=== PATIENT | female | born 1985 | race Two or more races ===

== ENCOUNTER 2022-12-20 04:38 | Emergency (ER) | payer BC ==
[~2022-12-20] VITALS: Ht 157.5 cm; Wt 66.0 kg
[2022-12-20] MEDS ORDERED: AZIT500T66 PO (07:04)
[2022-12-20] MEDS ORDERED: BENZ100C19 PO (07:04)
[2022-12-20 07:15] VITALS: BP 117/58
== END 2022-12-20 07:42 | disposition home or self-care (01) ==
LOC: ER 04:38
DX: J03.90 Acute tonsillitis, unspecified (principal); Z20.822 Contact with and (suspected) exposure to COVID-19
CPT/HCPCS: 36415; 87426; 87804

== ENCOUNTER 2024-06-17 08:28 | Inpatient (IN) | payer BC, MEDICAID ==
[~2024-06-17] VITALS: Ht 157.5 cm; Wt 68.3 kg
[~2024-06-17 08:28] MED LIST: AZIT500T66 PO; BENZ100C19 PO
--- NOTE | 2024-06-17 09:00 | ED.PDOC ---
GI ASSESSMENT HPI Comments 38 y.o female with PMH of gallstones, presents to the ED for a chief complaint of suprapubic pain and nausea that started this morning. Patient describes pain as sharp, constant, non radiating and rating a 10/10 on the pain scale. Patient states pain presented spontaneously upon waking up, took 2 Tylenol tablets prior to coming to the ED but had no relief. No vomiting, diarrhea, fever, chills, or urinary symptoms reported. Chief Complaint: Abdominal Pain Time Seen by MD: 08:44 Reviewed Notes: Nurses Notes, Medications, Allergies Allergies: Coded Allergies: NO KNOWN ALLERGIES (Unverified , 12/20/22) Home Meds Active Scripts Benzonatate (Tessalon Perles) 100 Mg Cap, 200 MG PO TID, #30 CAP Prov:ELMER VO 12/20/22 Azithromycin (Azithromycin) 500 Mg Tab, 1 TAB PO DAILY, #5 TAB Prov:ELMER VO 12/20/22 Information Source: Patient Mode of Arrival: Ambulatory Timing: Hours Duration: Since onset Quality: Sharp Vomitus: None Stool: Normal Severity: Moderate Recent: None Recent Hx of: None Pain Location: Suprapubic Modifying Factors: Nothing Associated sign and symptoms: Nausea, Abdominal Pain Past Medical History PAST MEDICAL HISTORY: Gallstones Surgical History: (2) Surgical History (Other): gallstones and cosmetic tummy tuck CHILD CARE GIVER History: Denies all CHILD CARE GIVER Hx Family History Family History: Reviewed,noncontributory to illness Social History Smoker: Non-Smoker Alcohol: Denies ETOH Use Drugs: Denies Drug Use Lives In: Home Constitutional: denies: chills, diaphoresis, fatigue, fever, malaise, sweats, weakness, others EENTM: denies: blurred vision, double vision, ear bleeding, ear discharge, ear drainage, ear pain, ear ringing, eye pain, eye redness, hearing loss, mouth pain, mouth swelling, nasal discharge, nose bleeding, nose congestion, nose pain, photophobia, tearing, throat pain, throat swelling, voice changes, others Respiratory: denies: cough, hemoptysis, orthopnea, SOB at rest, shortness of breath, SOB with excertion, stridor, wheezing, others Gastrointestinal: reports: abdominal pain, nausea; denies: abdomen distended, blood streaked bowels, constipated, diarrhea, dysphagia, difficulty swallowing, hematemesis, melena, poor appetite, poor fluid intake, rectal bleeding, rectal pain, vomiting, others Genitourinary: denies: abnormal vagina bleeding, burning, dyspareunia, dysuria, flank pain, frequency, hematuria, incontinence, pain, , vagina discharge, urgency, others Neurological: denies: dizziness, fainting, headache, left sided numbness, left sided weakness, numbness, paresthesia, pre-existing deficit, right sided nu mbness, right sided weakness, seizure, speech problems, tingling, tremors, weakness, others Musculoskeletal: denies: back pain, gout, joint pain, joint swelling, muscle pain, muscle stiffness, neck pain, others Integumetry: denies: bruises, change in color, change in hair/nails, dryness, laceration, lesions, lumps, rash, wounds, others Allergic/Immunocompromised: denies: Difficulty Healing, Frequent Infections, Hives, Itching, others Hematologic/Lymphatic: denies: anemia, blood clots, easy bleeding, easy bruising, swollen glands, others Endocrine: denies: excessive hunger, excessive sweating, excessive thirst, excessive urination, flushing, intolerance to cold, intolerance to heat, unexplained weight gain, unexplained weight loss, others Psychiatric: denies: anxiety, bipolar disorder, depression, hopeless, panic disorder, schizophrenia, sleepless, suicidal, others All Other Systems: Reviewed and Negative Physical Exam General Appearance: Moderate Distress HEENT: Normal ENT Inspection, Pharynx Normal, TMs Normal Neck: Full Range of Motion, Non-Tender, Normal, Normal Inspection Respiratory: Chest Non-Tender, Lungs Clear, No Accessory Muscle Use, No Respiratory Distress, Normal Breath Sounds Cardiovascular: No Edema, No JVD, No Murmur, No Gallop, Normal Peripheral Pulses, Regular Rate/Rhythm Breast Exam: Deferred Gastrointestinal: No Organomegaly, No Pulsatile Mass, Normal Bowel Sounds, Soft Genitalia: Deferred Pelvic: Deferred Rectal: Deferred Extremities: No calf tenderness, Normal capillary refill, Normal inspection, Normal range of motion, Non-tender, No pedal edema Musculoskeletal : Apperance: Normal Neurologic: Alert, chain carrier II-XII nml as Tested, No Motor Deficits, Normal Affect, Normal Mood, No Sensory Deficits Cerebellar Function: Normal Reflexes: Normal Skin: Dry, Normal Color, Warm Peripheral Pulses: 3+ Radial (R), 3+ Radial (L) Lymphatic: No Adenopathy Was a procedure done? Was a procedure done?: No GI differential Dx Differential Diagnosis: Constipation, Diverticular disease, Esophagitis, Gastritis/PUD, Gastroenteritis, Inflammatory BD, Ovarian cyst/torsion X-Ray, Labs, Meds, VS Vital Signs Date Time Temp Pulse Resp B/P (MAP) Pulse Ox O2 Delivery O2 Flow Rate FiO2 06/17/24 11:29 98.1 94 18 115/43 (67) 99 98.1 06/17/24 11:29 91 18 97 Room Air* 0 21 06/17/24 08:50 97.7 89 16 123/64 (83) 99 Lab Test 06/17/24 09:07 06/17/24 08:48 Range/Units White Blood Count 11.7 H 4.4-10.8 10^3/uL Red Blood Count 4.61 4.0-5.20 10^6/uL Hemoglobin 14.2 12.2-16.2 g/dL Hematocrit 42.1 36.0-46.0 % Mean Corpuscular Volume 91.3 80.0-100.0 fL Mean Corpuscular Hemoglobin 30.9 28.0-32.0 pg Mean Corpuscular Hemoglobin Concent 33.8 32.0-36.0 g/dL Red Cell Distribution Width 12.6 11.8-14.3 % Platelet Count 199 140-450 10^3/uL Mean Platelet Volume 9.3 6.9-10.8 fL Neutrophils (%) (Auto) 83.9 H 37.0-80.0 % Lymphocytes (%) (Auto) 11.2 10.0-50.0 % Monocytes (%) (Auto) 4.4 0.0-12.0 % Eosinophils (%) (Auto) 0.4 0.0-7.0 % Basophils (%) (Auto) 0.1 0.0-2.0 % Neutrophils # (Auto) 9.8 H 1.6-8.6 10 ^3/uL Lymphocytes # (Auto) 1.3 0.4-5.4 10 ^3/uL Monocytes # (Auto) 0.5 0-1.3 10 ^3/uL Eosinophils # (Auto) 0 0-0.8 10 ^3/uL Basophils # (Auto) 0 0-0.2 10 ^3/uL Nucleated Red Blood Cells 0.1 % Sodium Level 139 136-145 mmol/L Potassium Level 4.1 3.5-5.1 mmol/L Chloride Level 107 98-107 mmol/L Carbon Dioxide Level 24 20-31 mmol/L Anion Gap 8 5-15 Blood Urea Nitrogen 13 9-23 mg/dL Creatinine 0.67 0.550-1.02 mg/dL Glomerular Filtration Rate Calc 114 >90 mL/min BUN/Creatinine Ratio 19.4 10.0-20.0 Serum Glucose 116 H 74-106 mg/dL Calcium Level 9.6 8.7-10.4 mg/dL Urine Color Yellow Yellow Urine Clarity Clear Clear Urine pH 5.0 5.0-9.0 Urine Specific [place] 1.029 1.001-1.035 Urine Protein Trace H Negative Urine Ketones Trace Negative Urine Blood Negative Negative /uL Urine Nitrite Negative Negative Urine Bilirubin Negative Negative Urine Urobilinogen Normal Negative mg/dL Urine Leukocyte Esterase Negative Negative /uL Urine RBC 10 0 - 4 /hpf Urine WBC 3 0 - 5 /hpf Urine Squamous Epithelial Cells Few <5 /hpf Urine Bacteria Few H None Seen /hpf Urine Mucus Few None Seen Urine Glucose Normal Normal mg/dL Current Medications Medications (Trade) Dose Ordered Sig/Melissa Route Start Time Stop Time Status Last Admin Ceftriaxone Sodium 50 ml @ 100 mls/hr ONCE ONCE IV 06/17/24 11:00 06/17/24 11:29 DC 06/17/24 11:26 Sodium Chloride 1,000 ml @ 1,000 mls/hr Q1H ONCE IV 06/17/24 11:00 06/17/24 11:59 DC 06/17/24 11:27 Patient alert. Complaining of abdominal pain. Suprapubic pain Vitals stable. Answering all questions. Possible urinary tract infection. Reviewed her history. Explained to the patient. Continue cardiac monitoring. WBC elevated. Urine has few bacteria. Establish intravenous access. Was given fluids. Was given Rocephin. CT scan of the abdomen reviewed ovarian cyst. CT CHEST, ABDOMEN AND PELVIS WITHOUT CONTRAST CLINICAL HISTORY: colitis TECHNIQUE: Multiple contiguous axial images of the abdomen and pelvis without intravenous contrast. The images were reformatted degenerate coronal and sagittal reconstructions. All CT scans at this medical facility are performed using dose modulation techniques as appropriate to a performed exam including the following:Automated exposure control was utilized; adjustment of the MA and/or KV according to patient size; and use of iterative reconstruction technique. Radiation Dose Information: CT Dose: CTDI volume is 6.36 mGy. Dose-length product is 349.39 mGy*cm FINDINGS: Evaluation of the abdomen and pelvis is limited without intravenous contrast. Gallbladder is surgically absent. The liver, pancreas, kidneys, adrenal glands, and spleen appear within normal limits. There is no gross evidence of abdominal lymphadenopathy. There is no free fluid or free air. The small and large bowel loops demonstrate normal caliber. There are scattered diverticula in the colon without evidence of acute diverticulitis. The abdominal aorta and IVC appear within normal limits. There is free fluid seen within the pelvis. The uterus appears within normal limits. There is a 4.6 x 3.2 cm cystic structure in the left adnexa presumably an ovarian cyst. Bladder grossly appears within normal limits for the degree of distention. There is no gross evidence of a pelvic mass. Lung bases are clear. There is no acute osseous abnormality. IMPRESSION: 1. There is nonspecific free fluid in the pelvis. 2. There is a 4.6 x 3.2 cm cystic structure in the left adnexa presumably an ovarian cyst. Further evaluation with dedicated pelvic ultrasound is recommended. 3. Cholecystectomy. Time of 1ST Reevaluation: 08:55 Reevaluation 1ST: Unchanged Patient Education/Counseling: Diagnosis, Treatment, Prognosis Family Education/Counseling: No Family Present Departure 1 Departure Time of Disposition: 09:09 Impression: Primary Impression: Intractable abdominal pain Additional Impression: Non-specific colitis Disposition: 09 ADMITTED INPATIENT Admit to: Med Surg Condition: Guarded Critical Care Note Critical Care Time?: No Stability Stability form required: No I personally scribed for BARBARA MUKHERJEE MD ([email or web address]) on 06/17/24 at 08:59. Electronically submitted by Orly Braun ([facility]). I personally scribed for BARBARA MUKHERJEE MD (MAG) on 06/17/24 at 13:04. Electronically submitted by Orly Braun ([facility]). BARBARA MUKHERJEE MD Jun 17, 2024 08:59
[2024-06-17 09:26] LABS: Urine Bacteria FEW /hpf (None Seen); Urine Blood Negative /uL (Negative); Urine Clarity Clear (Clear); Urine Color Yellow (Yellow); Urine Mucus FEW (None Seen); Urine Protein, UAD TRACE (Negative); Urine Specific Gravity 1.029 (1.001-1.035); Urine Urobilinogen Normal (Negative); Urine WBC 3 /hpf (0 - 5)
[2024-06-17 09:32] LABS: Basophils # (auto) 0 10 ^3/uL (0-0.2); Basophils % (auto) 0.1 % (0.0-2.0); Eosinophils # (auto) 0 10 ^3/uL (0-0.8); Eosinophils % (auto) 0.4 % (0.0-7.0); Hematocrit 42.1 % (36.0-46.0); Hemoglobin 14.2 g/dL (12.2-16.2); Lymphocytes # (auto) 1.3 10 ^3/uL (0.4-5.4); Lymphocytes % (auto) 11.2 % (10.0-50.0); Mean Corpuscular Hemoglobin 30.9 pg (28.0-32.0); Mean Corpuscular Hgb Conc. 33.8 g/dL (32.0-36.0); Mean Corpuscular Volume 91.3 fL (80.0-100.0); Monocytes # (auto) 0.5 10 ^3/uL (0-1.3); Monocytes % (auto) 4.4 % (0.0-12.0); Neutrophils # (auto) 9.8 10 ^3/uL (1.6-8.6); Neutrophils % (auto) 83.9 % (37.0-80.0); Nucleated Red Blood Cells % 0.1 %; Platelet Count (auto) 199 10^3/uL (140-450); Red Blood Cells 4.61 10^6/uL (4.0-5.20); Red Cell Distribution Width 12.6 % (11.8-14.3); White Blood Cell 11.7 10^3/uL (4.4-10.8)
[2024-06-17 09:46] LABS: Chloride 107 mmol/L (98-107); Potassium 4.1 mmol/L (3.5-5.1); Sodium 139 mmol/L (136-145)
[2024-06-17 09:47] LABS: Anion Gap 8 (5-15); Carbon Dioxide 24 mmol/L (20-31)
[2024-06-17 09:48] LABS: Calcium 9.6 mg/dL (8.7-10.4)
[2024-06-17 09:52] LABS: Glucose 116 mg/dL (74-106)
[2024-06-17 09:53] LABS: BUN/Creatinine Ratio 19.4 (10.0-20.0); Blood Urea Nitrogen 13 mg/dL (9-23)
[2024-06-17] MEDS: cefTRIAXone 1GM/50ML D5W 50 ML IV ONE (11:26)
[2024-06-17] MEDS: SODIUM CHLORIDE 0.9% 1,000 ML IV ONE ×2 (11:27→13:15)
[2024-06-17 11:29] VITALS: PULSE 91; RESP 18; O2SAT 97
--- NOTE | 2024-06-17 11:31 | DVH ---
CT CHEST, ABDOMEN AND PELVIS WITHOUT CONTRAST CLINICAL HISTORY: colitis TECHNIQUE: Multiple contiguous axial images of the abdomen and pelvis without intravenous contrast. The images were reformatted degenerate coronal and sagittal reconstructions. All CT scans at this medical facility are performed using dose modulation techniques as appropriate t o a performed exam including the following:Automated exposure control was utilized; adjustment of the MA and/or KV according to patient size; and use of iterative reconstruction technique. Radiation Dose Information: CT Dose: CTDI volume is 6.36 mGy. Dose-length product is 349.39 mGy*cm FINDINGS: Evaluation of the abdomen and pelvis is limited without intravenous contrast. Gallbladder is surgically absent. The liver, pancreas, kidneys, adrenal glands, and spleen appear within normal limits. There is no gross evidence of abdominal lymphadenopathy. There is no free fluid or free air. The small and large bowel loops demonstrate normal caliber. There are scattered diverticula in the c olon without evidence of acute diverticulitis. The abdominal aorta and IVC appear within normal limits. There is free fluid seen within the pelvis. The uterus appears within normal limits. There is a 4.6 x 3.2 cm cystic structure in the left adnexa presumably an ovarian cyst. Bladder grossly appears withi n normal limits for the degree of distention. There is no gross evidence of a pelvic mass. Lung bases are clear. There is no acute osseous abnormality. IMPRESSION: 1. There is nonspecific free fluid in the pelvis. 2. There is a 4.6 x 3.2 cm cystic structure in the left adnexa presumably an ovarian cyst. Further e valuation with dedicated pelvic ultrasound is recommended. 3. Cholecystectomy. HS:Y
--- NOTE | 2024-06-17 12:52 | DVH ---
INDICATION: Pain TECHNIQUE: Multiple real-time grayscale transabdominal sonographic images along with color and duplex Doppler of the uterus and ovaries were obtained. COMPARISON: None FINDINGS: The uterus measures 11.3 x 4.5 x 7.1 cm. The endometrial stripe measures 0.8 cm. Right ovary measures 2.5 x 1.5 x 1.0 cm with normal Doppler color flow Left ovary measures 4.9 x 3.5 x 3.6 cm with normal Doppler color flow. Left ovarian cyst measures 3. 8 cm. IMPRESSION: Left ovarian cyst or hemorrhagic cyst measures 3.8 cm.
[2024-06-17] MEDS ORDERED: MAALOX PLUS or MAALOX 30 ML PO PRN (13:15)
[2024-06-17] MEDS ORDERED: TEMAZEPAM 15 MG CAP PO PRN (13:15)
[2024-06-17] MEDS ORDERED: DOCUSATE SOD 100 MG CAP PO PRN (13:15)
[2024-06-17] MEDS ORDERED: LORazepam 0.5 MG TAB PO PRN (13:15)
--- NOTE | 2024-06-17 13:41 | DVHHP2 ---
History of Present Illness Reason for Visit: abdominal pain History of Present Illness 38 yo with history of ovarian cysts comes in with complaints of severe abdominal pain to the point it interferes with daily living and ability to function patient recommended for evaluation and admission Review of Systems Constitutional: No: Fever, Chills, Sweats, Weakness, Malaise, Other Eyes: No: Pain, Vision change, Conjunctivae inflammation, Eyelid inflammation, Other, Redness ENT: No: Ear pain, Ear discharge, Nose pain, Nose discharge, Nose congestion, Mouth pain, Mouth swelling, Throat pain, Throat swelling, Other Respiratory: No: Cough, Dry, Shortness of breath, SOB with excertion, Wheezing, Hemoptysis, Pleuritic Pain, Sputum, Wheezing, Other Gastrointestinal: Abdominal Pain; No: Nausea, Vomiting, Diarrhea, Constipation, Melena, Hematochezia, Other Genitourinary: No Dysuria, No Frequency, No Incontinence, No Hematuria, No Retention, No Other Musculoskeletal: No: other, neck pain, shoulder pain, arm pain, back pain, hand pain, leg pain, foot pain Skin: No: Rash, Lesions, Jaundice, Bruising, Other Neurological: No: Weakness, Numbness, Incoordination, Change in speech, Confusion, Seizures, Other Allergies: Coded Allergies: NO KNOWN ALLERGIES (Unverified , 12/20/22) Medications Current Medications Medications Dose Ordered Sig/Melissa Route Start Time Stop Time Status Last Admin Dose Admin Ceftriaxone Sodium 50 ml @ 100 mls/hr DAILY IV 06/18/24 10:00 Metronidazole 100 ml @ 100 mls/hr Q8HR IV 06/17/24 13:15 Lorazepam 0.5 mg Q6HP PRN PO 06/17/24 13:15 Al Hydrox/Mg Hydrox/Simethicone 30 ml Q6HP PRN PO 06/17/24 13:15 Docusate Sodium 100 mg BIDPRN PRN PO 06/17/24 13:15 Acetaminophen 650 mg Q6HP PRN PO 06/17/24 13:15 Temazepam 15 mg QHSP PRN PO 06/17/24 13:15 Acetaminophen/ Hydrocodone Bitart 1 tab Q4HP PRN PO 06/17/24 13:15 Ondansetron HCl 4 mg Q4HP PRN IV 06/17/24 13:15 Morphine Sulfate 2 mg Q4HPRN PRN IV 06/17/24 13:15 Exam Vital Signs Vital Signs Date Time Temp Pulse Resp B/P (MAP) Pulse Ox O2 Delivery O2 Flow Rate FiO2 06/17/24 11:29 98.1 94 18 115/43 (67) 99 98.1 06/17/24 11:29 Room Air* 0 21 General Appearance: Alert, Oriented X3 HEENT: Atraumatic, PERRLA Respiratory: Clear to auscultation, Normal air movement Cardiovascular: Regular rate, Normal S1, Normal S2 Abdominal: Normal bowel sounds, Soft, No tenderness Extremities: No clubbing, No cyanosis, No edema Skin: No rashes, No breakdown, No significant lesion Neuro: Normal gait, Normal speech, Strength at 5/5 X4 ext Psych/Mental Status: Mood NL Labs/Xrays Labs Test 06/17/24 09:07 06/17/24 08:48 Range/Units White Blood Count 11.7 H 4.4-10.8 10^3/uL Red Blood Count 4.61 4.0-5.20 10^6/uL Hemoglobin 14.2 12.2-16.2 g/dL Hematocrit 42.1 36.0-46.0 % Mean Corpuscular Volume 91.3 80.0-100.0 fL Mean Corpuscular Hemoglobin 30.9 28.0-32.0 pg Mean Corpuscular Hemoglobin Concent 33.8 32.0-36.0 g/dL Red Cell Distribution Width 12.6 11.8-14.3 % Platelet Count 199 140-450 10^3/uL Mean Platelet Volume 9.3 6.9-10.8 fL Neutrophils (%) (Auto) 83.9 H 37.0-80.0 % Lymphocytes (%) (Auto) 11.2 10.0-50.0 % Monocytes (%) (Auto) 4.4 0.0-12.0 % Eosinophils (%) (Auto) 0.4 0.0-7.0 % Basophils (%) (Auto) 0.1 0.0-2.0 % Neutrophils # (Auto) 9.8 H 1.6-8.6 10 ^3/uL Lymphocytes # (Auto) 1.3 0.4-5.4 10 ^3/uL Monocytes # (Auto) 0.5 0-1.3 10 ^3/uL Eosinophils # (Auto) 0 0-0.8 10 ^3/uL Basophils # (Auto) 0 0-0.2 10 ^3/uL Nucleated Red Blood Cells 0.1 % Sodium Level 139 136-145 mmol/L Potassium Level 4.1 3.5-5.1 mmol/L Chloride Level 107 98-107 mmol/L Carbon Dioxide Level 24 20-31 mmol/L Anion Gap 8 5-15 Blood Urea Nitrogen 13 9-23 mg/dL Creatinine 0.67 0.550-1.02 mg/dL Glomerular Filtration Rate Calc 114 >90 mL/min BUN/Creatinine Ratio 19.4 10.0-20.0 Serum Glucose 116 H 74-106 mg/dL Calcium Level 9.6 8.7-10.4 mg/dL Urine Color Yellow Yellow Urine Clarity Clear Clear Urine pH 5.0 5.0-9.0 Urine Specific [place] 1.029 1.001-1.035 Urine Protein Trace H Negative Urine Ketones Trace Negative Urine Blood Negative Negative /uL Urine Nitrite Negative Negative Urine Bilirubin Negative Negative Urine Urobilinogen Normal Negative mg/dL Urine Leukocyte Esterase Negative Negative /uL Urine RBC 10 0 - 4 /hpf Urine WBC 3 0 - 5 /hpf Urine Squamous Epithelial Cells Few <5 /hpf Urine Bacteria Few H None Seen /hpf Urine Mucus Few None Seen Urine Glucose Normal Normal mg/dL Assessment/Plan Assessment/Plan Admit Med/Surge UTI acute signs of infection iv abx iv hydration Suspected Ovarian Hemorrhagic cyst doe/call taker evaluation prn pain management patient with severe pain iv hydration Plan discussed with: Patient My Orders Orders - MARIUM OAKLEY MD Procedure Category Date Status Time Ceftriaxone 1gm/50ml PHA 06/18/24 In Process D5w (Rocephin) 10:00 Metronidazole PHA 06/17/24 In Process 500mg/100ml (Flagyl 13:15 Sodium Chloride 0.9% PHA 06/17/24 In Process 13:15 * Tier And Detonator Consultation CONS 06/17/24 Transmitted 13:02 Admit ADMIT 06/17/24 Transmitted 13:02 Code Status CODE 06/17/24 Transmitted 13:02 Vital Signs SABA 06/17/24 In Process 13:02 Review Orders With SABA 06/17/24 In Process . 13:02 Regular Diet DIET 06/17/24 Transmitted Lunch Lorazepam Tablet PHA 06/17/24 In Process (Ativan Tablet) 13:15 Alum & Mag PHA 06/17/24 In Process Hydrox-Simethicone 13:15 Docusate Sodium PHA 06/17/24 In Process Capsule (Colace 13:15 Acetaminophen Tablet PHA 06/17/24 In Process (Tylenol Tablet) 13:15 Temazepam (Restoril) PHA 06/17/24 In Process 13:15 Notify Md Of Changes SABA 06/17/24 In Process From Base 13:02 Advance Directive SABA 06/17/24 In Process 13:02 Basic Metabolic Panel LAB 06/18/24 Verified 04:00 Complete Blood Count LAB 06/18/24 Verified 04:00 Patient Condition ORDERS 06/17/24 Transmitted 13:02 Allergies SABA 06/17/24 In Process 13:02 Hydrocodone-Acet PHA 06/17/24 In Process 5/325mg Tab ([place] 13:15 Ondansetron Hcl PHA 06/17/24 In Process (Zofran) 13:15 Morphine Sulfate PHA 06/17/24 In Process Injection 13:15 Notify Md Of Changes SABA 06/17/24 In Process From Base 13:02 Oxygen By Nasal RT 06/17/24 Transmitted Cannula 13:02 Problem List: (1) Cyst of ovary, left (2) Urinary tract infection (3) Intractable abdominal pain Date of Service: Jun 17, 2024 Billing Provider: MARIUM OAKLEY MD Common Visit Codes: [id number] INP/OBS CARE (HIGH) MARIUM OAKLEY MD Jun 17, 2024 13:41
[2024-06-17] MEDS: metroNIDAZOLE 500MG/100ML 100 ML IV SCH (13:55)
[2024-06-17] MEDS: HYDROcodone-ACET 5/325MG TAB PO PRN (21:23)
[2024-06-18] VITALS (8 sets, daily range): BP systolic 104–118; BP diastolic 42–59; PULSE 62–89; RESP 16–18; TEMP 98–98.6; O2SAT 74–100
[2024-06-18] MEDS: ONDANSETRON HCL 4 MG/2 ML VIAL IV PRN (01:47)
[2024-06-18] MEDS: MORPHINE SULFATE INJ 2 MG/ml SYRG IV PRN (01:47)
[2024-06-18] MEDS: cefTRIAXone 1GM/50ML D5W 50 ML IV SCH (08:55)
[2024-06-18 09:24] LABS: Basophils # (auto) 0 10 ^3/uL (0-0.2); Basophils % (auto) 0.2 % (0.0-2.0); Eosinophils # (auto) 0.1 10 ^3/uL (0-0.8); Eosinophils % (auto) 1.1 % (0.0-7.0); Hematocrit 37.4 % (36.0-46.0); Hemoglobin 13.1 g/dL (12.2-16.2); Lymphocytes # (auto) 1.7 10 ^3/uL (0.4-5.4); Lymphocytes % (auto) 22.5 % (10.0-50.0); Mean Corpuscular Hemoglobin 31.7 pg (28.0-32.0); Mean Corpuscular Hgb Conc. 35.1 g/dL (32.0-36.0); Mean Corpuscular Volume 90.3 fL (80.0-100.0); Monocytes # (auto) 0.5 10 ^3/uL (0-1.3); Monocytes % (auto) 6.5 % (0.0-12.0); Neutrophils # (auto) 5.4 10 ^3/uL (1.6-8.6); Neutrophils % (auto) 69.7 % (37.0-80.0); Platelet Count (auto) 169 10^3/uL (140-450); Red Blood Cells 4.14 10^6/uL (4.0-5.20); Red Cell Distribution Width 12.8 % (11.8-14.3); White Blood Cell 7.7 10^3/uL (4.4-10.8)
[2024-06-18 09:40] LABS: Anion Gap 10 (5-15); Carbon Dioxide 23 mmol/L (20-31); Chloride 108 mmol/L (98-107); Potassium 3.9 mmol/L (3.5-5.1); Sodium 141 mmol/L (136-145)
[2024-06-18 09:41] LABS: Calcium 9.4 mg/dL (8.7-10.4)
[2024-06-18 09:46] LABS: BUN/Creatinine Ratio 14.8 (10.0-20.0); Blood Urea Nitrogen 9 mg/dL (9-23); Glucose 110 mg/dL (74-106)
[2024-06-18 11:14] LABS: Albumin 4.2 g/dL (3.2-4.8); Bilirubin, Direct 0.2 mg/dL (<0.3); Bilirubin, Total 0.6 mg/dL (0.2-1.0); Total Protein 6.7 g/dL (5.7-8.2)
--- NOTE | 2024-06-18 17:08 | DVHINCON2 ---
Date of service: Jun 18, 2024 Reason for Consultation Abdominal Pain History of Present Illness HPI 38y SAB1 LMP 05/28/24. History of C/Section x 2 and s/p BTL Admitted with acute abdominal pain. Denies N/V diarrhea or fever. Denies abnormal vaginal discharge, and has no risk factors for PID/STI, mo nogamous x 5 years () ASSEMBLY DEPARTMENT SUPERVISOR history: Last PAP 2023 "normal" per patient. Denies history of GC/CT or STI Menses are very irregular, skips 2-3 months (anovulation) and then has menstrual cycles that are heavy with 3-5 days of flow Denies pain w/ intercourse. Currently pain is moderate, better with rest and analgesics CT scan demonstrates a left ovarian cyst approx 4.6 cm and free fluid in the pelvis Pelvic US demonstrates a left ovarian cyst 3.8cm, normal endometrial stripe, normal right ovary. Uterus 11.3 x 4.5 x 7.1 cm without mass or fibroids. Past Medical History Cardiac: No pertinent Hx Pulmonary: No pertinent Hx Central Nervous System: No pertinent Hx GI: No pertinent Hx Hemotology/Oncology: No pertinent Hx Hepatobiliary: No pertinent Hx Psychiatric: No pertinent Hx Musculoskeletal: No pertinent Hx Rheumotologic: No pertinent Hx Infectious Disease: No peritnent Hx ENT: No pertinent Hx Renal/: No pertinent Hx Endocrine: No pertinent Hx Dermatology: No pertinent Hx Past Surgical History: Cholecystectomy, , Other (Abdominoplasty) Family History: No pertinent Hx Patient Family History: Patient reports no known family medical history. Smoker: No Hx (Negative) Alocohol: Rare Drugs: None Lives with: With family Review of Systems Constitutional: No symptom reported Ears, Nose, & Throat: No symptom reported Eyes: No symptom reported Pulmonary/Respiratory: No symptom reported Cardiovascular: No symptom reported Gastrointestinal: Abdominal Pain Genitourinary: No symptom reported Musculoskeletal: No symptom reported Skin: No symptom reported Psychiatric: No symptom reported Endocrine: No symptom reported Hemotologic/Lymphatic: No symptom reported H&P Exam Vital Signs Vital Signs Date Time Temp Pulse Resp B/P (MAP) Pulse Ox O2 Delivery O2 Flow Rate FiO2 06/18/24 12:36 98.0 86 17 104/55 (71) 95 98.0 06/18/24 08:00 Room Air* 0 21 General Appeara: Well developed, Well nourished, Normal Appearance Head Exam: Normal inspection Eye Exam: bilateral eye PERRL Mouth: Normal Inspection Pulmonary/Respiratory: Normal inspection, Normal breath sounds Cardiovascular/Chest: Normal inspection Abdominal Exam: Soft, No masses, Other (Mild tenderness in RLQ and LLQ, no rebound, no peritoneal signs) Pelvic Exam: Not done Neuro/Mental St: Alert, Oriented Appearance: Appropriate appearance Labs/Xrays PATIENT: ESTELLA VILLATORO TACCT: [id number] UNIT: [id number] : 1985 LOC: ER ROOM / BED: / AGE / SEX: 38 / F ADM STATUS: REG ER SERVICE 1143 ORDERING PHYSICIAN: BARBARA MUKHERJEE MD PROCEDURE(s): PELUS - PELVIC REASON: cyst ORDER NUMBER(s): [id number], ACCESSION NUMBER(s): [id number] INDICATION: Pain TECHNIQUE: Multiple real-time grayscale transabdominal sonographic images along with color and duplex Doppler of the uterus and ovaries were obtained. COMPARISON: None FINDINGS: The uterus measures 11.3 x 4.5 x 7.1 cm. The endometrial stripe measures 0.8 cm. Right ovary measures 2.5 x 1.5 x 1.0 cm with normal Doppler color flow Left ovary measures 4.9 x 3.5 x 3.6 cm with normal Doppler color flow. Left ovarian cyst measures 3.8 cm. IMPRESSION: Left ovarian cyst or hemorrhagic cyst measures 3.8 cm. ATED BY: JONO ABAD MD DICTATED DATE/TIME: 06/17/24 1249 Labs Test 06/18/24 14:20 06/18/24 11:30 06/18/24 08:48 06/17/24 08:48 Range/Units Urine Test Negative Negative Lactic Acid Level 1.2 0.4-2.0 mmol/L White Blood Count 7.7 # 4.4-10.8 10^3/uL Red Blood Count 4.14 4.0-5.20 10^6/uL Hemoglobin 13.1 12.2-16.2 g/dL Hematocrit 37.4 # 36.0-46.0 % Mean Corpuscular Volume 90.3 80.0-100.0 fL Mean Corpuscular Hemoglobin 31.7 28.0-32.0 pg Mean Corpuscular Hemoglobin Concent 35.1 32.0-36.0 g/dL Red Cell Distribution Width 12.8 11.8-14.3 % Platelet Count 169 140-450 10^3/uL Mean Platelet Volume 9.0 6.9-10.8 fL Neutrophils (%) (Auto) 69.7 37.0-80.0 % Lymphocytes (%) (Auto) 22.5 10.0-50.0 % Monocytes (%) (Auto) 6.5 0.0-12.0 % Eosinophils (%) (Auto) 1.1 0.0-7.0 % Basophils (%) (Auto) 0.2 0.0-2.0 % Neutrophils # (Auto) 5.4 1.6-8.6 10 ^3/uL Lymphocytes # (Auto) 1.7 0.4-5.4 10 ^3/uL Monocytes # (Auto) 0.5 0-1.3 10 ^3/uL Eosinophils # (Auto) 0.1 0-0.8 10 ^3/uL Basophils # (Auto) 0 0-0.2 10 ^3/uL Nucleated Red Blood Cells 0.0 % Sodium Level 141 136-145 mmol/L Potassium Level 3.9 3.5-5.1 mmol/L Chloride Level 108 H 98-107 mmol/L Carbon Dioxide Level 23 20-31 mmol/L Anion Gap 10 5-15 Blood Urea Nitrogen 9 9-23 mg/dL Creatinine 0.61 0.550-1.02 mg/dL Glomerular Filtration Rate Calc 117 >90 mL/min BUN/Creatinine Ratio 14.8 10.0-20.0 Serum Glucose 110 H 74-106 mg/dL Calcium Level 9.4 8.7-10.4 mg/dL Total Bilirubin 0.6 0.2-1.0 mg/dL Direct Bilirubin 0.2 <0.3 mg/dL Aspartate Amino Transferase (AST) 30 13-40 U/L Alanine Aminotransferase (ALT) 31 7-40 U/L Alkaline Phosphatase 62 46-116 U/L Total Protein 6.7 5.7-8.2 g/dL Albumin 4.2 3.2-4.8 g/dL Urine Color Yellow Yellow Urine Clarity Clear Clear Urine pH 5.0 5.0-9.0 Urine Specific [place] 1.029 1.001-1.035 Urine Protein Trace H Negative Urine Ketones Trace Negative Urine Blood Negative Negative /uL Urine Nitrite Negative Negative Urine Bilirubin Negative Negative Urine Urobilinogen Normal Negative mg/dL Urine Leukocyte Esterase Negative Negative /uL Urine RBC 10 0 - 4 /hpf Urine WBC 3 0 - 5 /hpf Urine Squamous Epithelial Cells Few <5 /hpf Urine Bacteria Few H None Seen /hpf Urine Mucus Few None Seen Urine Glucose Normal Normal mg/dL Assessment/Plan Admitting Diagnosis: 1. Acute abdominal pain 2. Irreg menses, anovulation 3. Left ovarian 3.8 cm cyst, likely hemorrhagic cyst Plan NO acute clinical documentation clerk intervention indicated at this time No indication for surgery (NO cyst rupture or torsion, hemodynamically stable) Follicular/ Functional cysts should be managed conservatively and with symptomatic treatment, analgesics Would consider inhibition of ovulation with use of OCPs or combined contraceptives. Recommend Follow up with ASSEMBLY DEPARTMENT SUPERVISOR in outpatient clinic. Recommend repeat Pelvic US in 6-8 wk for resolution of ovarian cyst. ASSEMBLY DEPARTMENT SUPERVISOR will sign off. Plan discussed with: Patient Date of Service: Jun 18, 2024 Billing Provider: JUANITO DIEGO DO Common Visit Codes: CONSULT ONLY Consultation Codes: [id number] CONSULT <60MIN JUANITO DIEGO DO Jun 18, 2024 17:08
--- NOTE | 2024-06-18 17:28 | DVHPNRES ---
Progress Note Date Seen: Jun 18, 2024 Resident Creating Document: LUKAS HUSSEIN RESIDENT Has the PT tested + for MRSA If YES, has PT been informed?: No Medical Necessity Reason Pt with a Central, PICC or Fol: Yes The following are medically ne: Central Line Subjective Review of Systems Patient has intermittent abdominal pain., with pain medication we will with morphine. Denies nausea vomiting or any other GI or symptoms. Patient reports: No new complaints, Feels better Changes from previous H/P or p: No Changes Review of Systems: HEENT:Normal, CVS:Normal, RESPIRATORY:Normal, GI:Abnormal (Abdominal pain), :Normal, MSK:Normal, NEURO:Normal Objective vital signs Vital Sign Date Time Temp Pulse Resp B/P (MAP) Pulse Ox O2 Delivery O2 Flow Rate FiO2 06/18/24 12:36 98.0 86 17 104/55 (71) 95 98.0 06/18/24 08:00 Room Air* 0 21 Total Intake and Output 06/17/24 06/17/24 06/18/24 15:00 23:00 07:00 Intake Total 200 ml Output Total 0 ml Balance 200 ml medications Current Medications Medications Dose Ordered Sig/Melissa Route Start Time Stop Time Status Last Admin Dose Admin Ceftriaxone Sodium 50 ml @ 100 mls/hr DAILY IV 06/18/24 10:00 06/18/24 08:55 100 MLS/HR Metronidazole 100 ml @ 100 mls/hr Q8HR IV 06/17/24 13:15 06/18/24 16:42 100 MLS/HR Lorazepam 0.5 mg Q6HP PRN PO 06/17/24 13:15 Al Hydrox/Mg Hydrox/Simethicone 30 ml Q6HP PRN PO 06/17/24 13:15 Docusate Sodium 100 mg BIDPRN PRN PO 06/17/24 13:15 Acetaminophen 650 mg Q6HP PRN PO 06/17/24 13:15 Temazepam 15 mg QHSP PRN PO 06/17/24 13:15 Ondansetron HCl 4 mg Q4HP PRN IV 06/17/24 13:15 06/18/24 01:47 4 MG Examination: GENERAL:Normal, HEENT:Normal, NECK:Normal, LUNGS:Normal, CVS:Normal, ABDOMEN:Abnormal (Suprapubic tenderness, otherwise BS positive, CVA angle tenderness negative,), MSK:Normal, SKIN:Normal, NEURO:Normal, :Normal laboratory and microbiology Laboratory Tests 06/18/24 08:48 Test 06/18/24 08:48 Range/Units Serum Glucose 110 H 74-106 mg/dL Labs and/or images reviewed: Labs reviewed by me, Image(s) reviewed by me Problem List/Assessment/Plan Problem List/Assessment/Plan Hospital Course: Aman Louis a female with a history of three healthy pregnancies and two sections, experiencing menometrorrhagia, was initially evaluated by OBGYN and found to have a simple cyst. With a known history of ovarian cysts, she presented with severe abdominal pain affecting daily living and functioning. During evaluation, a hemorrhagic ovarian cyst was found. She is hemodynamically stable, in active pain, on IV fluids and antibiotics, and awaiting further OBGYN evaluation for management. Patient lives with family and kids. Denied any history of lifetime smoking, alcohol or any other recreational drugs. # Hemorrhagic ovarian cyst: noted in abdominal imaging, Nonspecific free fluid noted on IV ceftriaxone and metronidazole for broad coverage. Blood culture, urine culture to follow as well. initial leukocytosis improved. Waiting for OBGYN input. # known left ovarian cyst, 4.6 x 3.2 in the left adnexa: Previous ultrasound few months back noted it 1st. No previous pain or related hospitalization. # Possible UTI: Urine tardy, covering with ceftriaxone already, follow urine culture. Mild suprapubic tenderness, patient complains of nonspecific urinary symptoms. UA unremarkable. # Insomnia, on Restoril /temazepam 15 mg as needed. # history of cholecystectomy # overweight with BMI of 27.[address] Bautista. Code status: Full code. Complex patient care discussion needed total 39 minutes. Plan discussed with: Patient, Other My Orders My Orders Orders - LUKAS HUSSEIN Procedure Category Date Status Time Blood Culture ALYCIA 06/18/24 In Process 09:55 Urine Bacterial ALYCIA 06/18/24 In Process Culture 09:55 Complete Blood Count LAB 06/19/24 Verified 04:00 LUKAS HUSSEIN Jun 18, 2024 17:28
[2024-06-18] MEDS ORDERED: MORPHINE SULFATE INJ 2 MG/ml SYRG IV PRN (17:30)
[2024-06-18] MEDS ORDERED: HYDROcodone-ACET 5/325MG TAB PO PRN (17:30)
[2024-06-19 01:00] VITALS: BP 98/39; PULSE 89; RESP 18; TEMP 97.8; O2SAT 96
[2024-06-19 05:00] VITALS: BP 101/45; PULSE 96; RESP 18; TEMP 97.6; O2SAT 94
[2024-06-19 06:08] LABS: Basophils # (auto) 0 10 ^3/uL (0-0.2); Basophils % (auto) 0.3 % (0.0-2.0); Eosinophils # (auto) 0.1 10 ^3/uL (0-0.8); Eosinophils % (auto) 0.9 % (0.0-7.0); Hematocrit 35.1 % (36.0-46.0); Hemoglobin 12.8 g/dL (12.2-16.2); Lymphocytes # (auto) 0.8 10 ^3/uL (0.4-5.4); Lymphocytes % (auto) 11.1 % (10.0-50.0); Mean Corpuscular Hemoglobin 32.8 pg (28.0-32.0); Mean Corpuscular Hgb Conc. 36.4 g/dL (32.0-36.0); Mean Corpuscular Volume 90.1 fL (80.0-100.0); Monocytes # (auto) 0.4 10 ^3/uL (0-1.3); Monocytes % (auto) 6.2 % (0.0-12.0); Neutrophils # (auto) 5.9 10 ^3/uL (1.6-8.6); Neutrophils % (auto) 81.5 % (37.0-80.0); Platelet Count (auto) 150 10^3/uL (140-450); Red Blood Cells 3.89 10^6/uL (4.0-5.20); Red Cell Distribution Width 12.6 % (11.8-14.3); White Blood Cell 7.2 10^3/uL (4.4-10.8)
[2024-06-19 07:55] VITALS: RESP 18; O2SAT 96
[2024-06-19] MEDS: ACETAMINOPHEN 325 MG TAB PO PRN (08:36)
[2024-06-19 08:43] VITALS: BP 95/38; PULSE 99; RESP 20; TEMP 98.7; O2SAT 95
[2024-06-19 13:16] VITALS: BP 97/53; PULSE 71; RESP 20; TEMP 98.2; O2SAT 95
[2024-06-19] MEDS ORDERED: CIPR500T4 PO (13:23)
--- NOTE | 2024-06-19 13:36 | DVHDSRES ---
Discharge Summary Date of Admission Resident Creating Document: LUKAS HUSSEIN RESIDENT Jun 17, 2024 at 13:02 Date of Discharge: Jun 19, 2024 Admitting Diagnosis Intractable abdominal pain Labs/Diagnostic Data: Laboratory Results Test 06/19/24 05:40 06/18/24 14:20 06/18/24 11:30 06/18/24 08:48 White Blood Count 7.2 10^3/uL (4.4-10.8) Red Blood Count 3.89 10^6/uL (4.0-5.20) Hemoglobin 12.8 g/dL (12.2-16.2) Hematocrit 35.1 % (36.0-46.0) Mean Corpuscular Volume 90.1 fL (80.0-100.0) Mean Corpuscular Hemoglobin 32.8 pg (28.0-32.0) Mean Corpuscular Hemoglobin Concent 36.4 g/dL (32.0-36.0) Red Cell Distribution Width 12.6 % (11.8-14.3) Platelet Count 150 10^3/uL (140-450) Mean Platelet Volume 8.9 fL (6.9-10.8) Neutrophils (%) (Auto) 81.5 % (37.0-80.0) Lymphocytes (%) (Auto) 11.1 % (10.0-50.0) Monocytes (%) (Auto) 6.2 % (0.0-12.0) Eosinophils (%) (Auto) 0.9 % (0.0-7.0) Basophils (%) (Auto) 0.3 % (0.0-2.0) Neutrophils # (Auto) 5.9 10 ^3/uL (1.6-8.6) Lymphocytes # (Auto) 0.8 10 ^3/uL (0.4-5.4) Monocytes # (Auto) 0.4 10 ^3/uL (0-1.3) Eosinophils # (Auto) 0.1 10 ^3/uL (0-0.8) Basophils # (Auto) 0 10 ^3/uL (0-0.2) Nucleated Red Blood Cells 0.0 % Urine Test Negative (Negative) Lactic Acid Level 1.2 mmol/L (0.4-2.0) Sodium Level 141 mmol/L (136-145) Potassium Level 3.9 mmol/L (3.5-5.1) Chloride Level 108 mmol/L (98-107) Carbon Dioxide Level 23 mmol/L (20-31) Anion Gap 10 (5-15) Blood Urea Nitrogen 9 mg/dL (9-23) Creatinine 0.61 mg/dL (0.550-1.02) Glomerular Filtration Rate Calc 117 mL/min (>90) BUN/Creatinine Ratio 14.8 (10.0-20.0) Serum Glucose 110 mg/dL (74-106) Calcium Level 9.4 mg/dL (8.7-10.4) Total Bilirubin 0.6 mg/dL (0.2-1.0) Direct Bilirubin 0.2 mg/dL (<0.3) Aspartate Amino Transferase (AST) 30 U/L (13-40) Alanine Aminotransferase (ALT) 31 U/L (7-40) Alkaline Phosphatase 62 U/L (46-116) Total Protein 6.7 g/dL (5.7-8.2) Albumin 4.2 g/dL (3.2-4.8) Test 06/17/24 08:48 Urine Color Yellow (Yellow) Urine Clarity Clear (Clear) Urine pH 5.0 (5.0-9.0) Urine Specific [place] 1.029 (1.001-1.035) Urine Protein Trace (Negative) Urine Ketones Trace (Negative) Urine Blood Negative /uL (Negative) Urine Nitrite Negative (Negative) Urine Bilirubin Negative (Negative) Urine Urobilinogen Normal mg/dL (Negative) Urine Leukocyte Esterase Negative /uL (Negative) Urine RBC 10 /hpf (0 - 4) Urine WBC 3 /hpf (0 - 5) Urine Squamous Epithelial Cells Few /hpf (<5) Urine Bacteria Few /hpf (None Seen) Urine Mucus Few (None Seen) Urine Glucose Normal mg/dL (Normal) Other Laboratory Tests 06/19/24 05:40 06/18/24 08:48 Brief Hx & Hospital Course: Aman Louis a female with a history of three healthy pregnancies and two sections, experiencing menometrorrhagia, was initially evaluated by OBGYN and found to have a simple cyst. With a known history of ovarian cysts, she presented with severe abdominal pain affecting daily living and functioning. During evaluation, a hemorrhagic ovarian cyst was found. She was hemodynamically stable, in active pain, on IV fluids and antibiotics, and awaiting further OBGYN evaluation for management. Patient lives with family and kids. Denied any history of lifetime smoking, alcohol or any other recreational drugs. Hospital course: supervisor plating and point assembly recommended no acute gynecological intervention indicated at this time, no indication for surgery as there was no cyst rupture or torsion and patient was hemodynamically stable. supervisor plating and point assembly recommended that follicular/functional cyst should be managed conservatively and with symptomatic treatment and analgesics and they recommended follow up with supervisor plating and point assembly in the outpatient clinic and repeat pelvic ultrasonography in 6-8 weeks for resolution of ovarian cyst. Patient was also noted to have a UTI which was treated with ceftriaxone, urine culture came back negative as well as blood culture also came back negative. Diverticulitis was ruled out. On the day of discharge, patient appeared well and had stable vital signs along with improved abdominal pain. She was prescribed ciprofloxacin 500 mg b.i.d. for 5 days. Plan of care details were explained to the patient at bedside, all questions were answered and concerns addressed. Her hospital course was uncomplicated. GENERAL:Normal, HEENT:Normal, NECK:Normal, LUNGS:Normal, CVS:Normal, ABDOMEN:Abnormal (Suprapubic tenderness, otherwise BS positive, CVA angle tenderness negative,), MSK:Normal, SKIN:Normal, NEURO:Normal, :Normal Consults/Reason for consult supervisor plating and point assembly consult: Suspected ovarian hemorrhagic cyst Operations or Procedures CT CHEST, ABDOMEN AND PELVIS WITHOUT CONTRAST CLINICAL HISTORY: colitis TECHNIQUE: Multiple contiguous axial images of the abdomen and pelvis without intravenous contrast. The images were reformatted degenerate coronal and sagittal reconstructions. All CT scans at this medical facility are performed using dose modulation techniques as appropriate to a performed exam including the following:Automated exposure control was utilized; adjustment of the MA and/or KV according to patient size; and use of iterative reconstruction technique. Radiation Dose Information: CT Dose: CTDI volume is 6.36 mGy. Dose-length product is 349.39 mGy*cm FINDINGS: Evaluation of the abdomen and pelvis is limited without intravenous contrast. Gallbladder is surgically absent. The liver, pancreas, kidneys, adrenal glands, and spleen appear within normal limits. There is no gross evidence of abdominal lymphadenopathy. There is no free fluid or free air. The small and large bowel loops demonstrate normal caliber. There are scattered diverticula in the colon without evidence of acute diverticulitis. The abdominal aorta and IVC appear within normal limits. There is free fluid seen within the pelvis. The uterus appears within normal limits. There is a 4.6 x 3.2 cm cystic structure in the left adnexa presumably an ovarian cyst. Bladder grossly appears within normal limits for the degree of distention. There is no gross evidence of a pelvic mass. Lung bases are clear. There is no acute osseous abnormality. IMPRESSION: 1. There is nonspecific free fluid in the pelvis. 2. There is a 4.6 x 3.2 cm cystic structure in the left adnexa presumably an ovarian cyst. Further evaluation with dedicated pelvic ultrasound is recommended. 3. Cholecystectomy. INDICATION: Pain TECHNIQUE: Multiple real-time grayscale transabdominal sonographic images along with color and duplex Doppler of the uterus and ovaries were obtained. COMPARISON: None FINDINGS: The uterus measures 11.3 x 4.5 x 7.1 cm. The endometrial stripe measures 0.8 cm. Right ovary measures 2.5 x 1.5 x 1.0 cm with normal Doppler color flow Left ovary measures 4.9 x 3.5 x 3.6 cm with normal Doppler color flow. Left ovarian cyst measures 3.8 cm. IMPRESSION: Left ovarian cyst or hemorrhagic cyst measures 3.8 cm. Condition at Discharge: Good Final Diagnosis/Problems List # Hemorrhagic ovarian cyst: # known left ovarian cyst, 4.6 x 3.2 in the left adnexa: # Possible UTI, ruled out diverticulitis # Insomnia # overweight with BMI of 27.5 Discharge Disposition: Home Discharge Instruct/Medications Diet: Regular Activity: No Restrictions, As Tolerated Follow Up/Referral: Please follow up with PCP in 1-2 weeks Please follow up with supervisor plating and point assembly in 2-3 weeks; repeat pelvic ultrasound in 6-8 weeks for resolution of ovarian cyst monitoring Medications: Ciprofloxacin 500 mg twice a day for 5 days Discharge Statement: "Patient was advised to return to the ER or call 911 if any headaches, dizziness, shortness of breath, chest pain, abdominal pain, bleeding, fevers, or worsening of medical condition. Patient was counseled about treatment plan, medications, possible side effects, patientverbalized understanding. All questions were answered to the best of my ability. This discharge took greater then 30 minutes in planning, reviewing documentation, counseling the patient, and discussing with other team members." ASSESSMENT ASSESSMENT Assessment # Hemorrhagic ovarian cyst: # known left ovarian cyst, 4.6 x 3.2 in the left adnexa: # Possible UTI, ruled out diverticulitis # Insomnia # overweight with BMI of 27.5 MAITE CHEN RESIDENT Jun 19, 2024 13:36
[2024-06-19] MEDS: LACTULOSE 20Gm/30ML SOLN PO ONE (14:31)
== END 2024-06-19 15:49 | disposition home or self-care (01) | DRG 760 ==
LOC: ER 08:28 → OVERFLOW 13:02 → EAST 06-18 02:25
PROVIDERS: ADMIT Hospitalist; ATTEND Internal Medicine
DX: N83.202 Unspecified ovarian cyst, left side (principal); N39.0 Urinary tract infection, site not specified; K52.9 Noninfective gastroenteritis and colitis, unspecified; E66.3 Overweight; G47.00 Insomnia, unspecified; N97.0 Female infertility associated with anovulation; Z98.891 History of uterine scar from previous surgery; Z90.49 Acquired absence of other specified parts of digestive tract; Z68.27 Body mass index [BMI] 27.0-27.9, adult
CPT/HCPCS: 36415; 74176; 76856; 80048; 80076; 81001; 81025; 83605; 85025; 87040; 87086; G0378; J2405; J3490